=== PATIENT | male | born 1950 | race Two or more races ===

== ENCOUNTER 2025-08-28 07:54 | Outpatient (CLI) | payer MEDICARE, MEDICAID ==
[2025-08-28 09:08] LABS: Alanine Aminotransferase 33 U/L (7-40); Albumin 4.4 g/dL (3.2-4.8); Alkaline Phosphatase 100 U/L (46-116); Anion Gap 11 (5-15); BUN/Creatinine Ratio 16.3 (10.0-20.0); Blood Urea Nitrogen 16 mg/dL (9-23); Calcium 9.2 mg/dL (8.7-10.4); Carbon Dioxide 24 mmol/L (20-31); Cholesterol 135 mg/dL (< 200); Glucose 105 mg/dL (74-106); HDL Cholesterol 57 mg/dL (40-59); Potassium 4.5 mmol/L (3.5-5.1); Sodium 142 mmol/L (136-145); Total Protein 7.3 g/dL (5.7-8.2); Triglycerides 75 mg/dL (< 150)
[2025-08-28 09:09] LABS: Bilirubin, Total 0.8 mg/dL (0.2-1.0); Chloride 107 mmol/L (98-107)
[2025-08-28 09:49] LABS: Microalb/Creat Ratio, Urine 4.0
== END 2025-08-28 17:00 | disposition home or self-care (01) ==
LOC: LAB 07:54
PROVIDERS: ATTEND Internal Medicine
DX: E78.5 Hyperlipidemia, unspecified (principal); R73.03 Prediabetes
CPT/HCPCS: 36415; 80053; 80061; 82043; 82570; 83036